=== PATIENT | male | born 1940 | race Caucasian/White ===

== ENCOUNTER 2022-02-23 07:42 | Observation (INO) ==
[2022-02-23 08:11] LABS: Basophils % 0.6 % (0.0-0.8); Eosinophils # 0.7 10*3/uL (0.0-0.87); Eosinophils % 10.4 % (0.00-10.9); Hematocrit 31.1 VOL% (42.0-52.0); Hemoglobin 9.9 GM/DL (14.0-18.0); Immature Granulocytes % 0.4 %; Immature Granulocytes Absolute 0.03 #; Lymphocytes # 0.7 10*3/uL (1.4-4.0); Mean Corpuscular HGB Conc 31.8 GM/DL (32-36); Mean Corpuscular Volume 87.6 FL (87-102); Mean Platelet Volume 9.4 FL (9.6-12.0); Monocytes % 14.4 % (1.7-12.7); Neutrophils % 63.2 % (38.7-73.9); Platelet Count 301 T/CUMM (130-400); Red Blood Count 3.55 MC/CUMM (3.8-5.5); Red Cell Distribution Width 15.9 % (9.3-17.3); White Blood Count 6.7 T/CUMM (4-12)
[2022-02-23] MEDS ORDERED: ASPIRIN 325 MG TABLET PO STA (08:17)
[2022-02-23] MEDS: NITROGLYCERIN SL 0.4 MG TABLET SL PRN ×2 (08:20→08:30)
[2022-02-23 08:36] LABS: Albumin 3.3 G/DL (3.4-5.0); Bilirubin,Total 0.4 MG/DL (0.20-1.00); Calcium 9.8 MG/DL (8.5-10.1); Osmolality,Calculated 285.4 MOS/KG (273-304); Total Protein 6.8 G/DL (6.4-8.2)
[2022-02-23] MEDS ORDERED: ALUM/MAG/SIMETH/LIDO VISC 1:1 30 ML BOTTLE PO STA (08:42)
[2022-02-23] MEDS ORDERED: ALUM/MAG/SIMETH/LIDO VISC 1:1 30 ML BOTTLE PO ONE (08:42)
[2022-02-23] MEDS ORDERED: MORPHINE 2 MG/1 ML SYRINGE ONE (08:43)
[2022-02-23] MEDS ORDERED: MORPHINE 2 MG/1 ML SYRINGE IV STA (08:43)
[2022-02-23] MEDS ORDERED: ONDANSETRON 4 MG/2 ML VIAL ONE (08:43)
[2022-02-23] MEDS ORDERED: ONDANSETRON 4 MG/2 ML VIAL IV STA (08:43)
[2022-02-23 09:20] LABS: PT Patient Result 10.6 SECS (10.5-12.0); Partial Thromboplastin Time 24.2 SECS (23.7-32.9)
[2022-02-23] MEDS ORDERED: DOCUSATE SODIUM 100 MG CAPSULE PO PRN (15:20)
[2022-02-23] MEDS ORDERED: GLUCAGON 1 MG VIAL IM PRN (15:20)
[2022-02-23] MEDS ORDERED: MORPHINE 2 MG/1 ML SYRINGE IV PRN (15:20)
[2022-02-23] MEDS ORDERED: DEXTROSE 10% 250 ML BAG IV PRN (15:31)
[2022-02-23] MEDS: CEFUROXIME 500 MG TABLET PO SCH (20:14)
[2022-02-23] MEDS: SODIUM CHLORIDE 0.9% 1,000 ML IV SCH (20:16)
[2022-02-23] MEDS ORDERED: ENOXAPARIN 40 MG/0.4 ML SYRINGE SUBCUT SCH (21:00)
[2022-02-24 04:49] LABS: Basophils % 0.7 % (0.0-0.8); Eosinophils # 0.4 10*3/uL (0.0-0.87); Eosinophils % 8.7 % (0.00-10.9); Hematocrit 30.6 VOL% (42.0-52.0); Hemoglobin 9.4 GM/DL (14.0-18.0); Immature Granulocytes % 0.2 %; Immature Granulocytes Absolute 0.01 #; Lymphocytes # 0.7 10*3/uL (1.4-4.0); Lymphocytes % 14.4 % (21.2-54.2); Mean Corpuscular HGB Conc 30.7 GM/DL (32-36); Mean Platelet Volume 9.9 FL (9.6-12.0); Monocytes # 0.7 10*3/uL (0.11-0.8); Monocytes % 15.9 % (1.7-12.7); Neutrophils % 60.1 % (38.7-73.9); Platelet Count 249 T/CUMM (130-400); Red Cell Distribution Width 15.8 % (9.3-17.3); White Blood Count 4.6 T/CUMM (4-12)
[2022-02-24 05:14] LABS: Eosinophils 11 % (0-10); Hypochromia Slight; Lymphocytes 14 % (20-55); Platelet Estimate Normal; Total Cells Counted 100
[2022-02-24 05:19] LABS: Osmolality,Calculated 283.3 MOS/KG (273-304); Potassium 4.2 MMOL/L (3.5-5.1); Thyroid Stimulating Hormone 1.8 uIU/ml (0.358-3.74)
[2022-02-24] MEDS: SODIUM CHLORIDE 0.9% 1,000 ML IV SCH ×2 (06:17→13:49)
[2022-02-24] MEDS ORDERED: PANTOPRAZOLE 40 MG TABLET PO SCH (09:00)
[2022-02-24 09:01] LABS: VLDL Cholesterol 13.4 MG/DL
[2022-02-24] MEDS: CEFUROXIME 500 MG TABLET PO SCH (10:22)
[2022-02-24 12:05] VITALS: BP 144/54
== END 2022-02-24 13:04 | disposition home or self-care (01) ==
LOC: N.ED 07:42 → N.TELEN 07:42 → SUATTDRO 15:20 → N.TELEN 16:38
PROVIDERS: ADMIT Internal Medicine; ATTEND Internal Medicine